=== PATIENT | female | born 1985 | race Two or more races ===

== ENCOUNTER 2024-01-08 16:30 | Emergency (ER) | payer MEDICAID ==
[~2024-01-08] VITALS: Ht 157.5 cm; Wt 99.0 kg
[~2024-01-08 16:30] MED LIST: NEOM10SO7 RIGHT EAR
[2024-01-08 17:14] LABS: BASOPHILS % (AUTO) 0.5 % (0-1); EOSINOPHILS % (AUTO) 0.5 % (0-6); HEMATOCRIT 40.3 % (35.0-45.0); HEMOGLOBIN 13.1 g/dl (12.0-16.0); LYMPHOCYTES # (AUTO) 2.4 X10'3 (1.1-4.8); LYMPHOCYTES % (AUTO) 27.2 % (21-51); MEAN CORPUSCULAR HEMOGLOBIN 27.6 PG (27.0-31.0); MEAN CORPUSCULAR HGB CONC 32.4 g/dL (33.0-36.5); MEAN CORPUSCULAR VOLUME 85.1 FL (78-98); MEAN PLATELET VOLUME 8.3 FL (7.4-10.4); MONOCYTES # (AUTO) 0.6 X10'3 (0-0.9); MONOCYTES % (AUTO) 6.5 % (2-12); NEUTROPHILS # (AUTO) 5.7 X10'3 (1.8-7.7); NEUTROPHILS % (AUTO) 65.3 % (42-75); PLATELET COUNT 366 X10'3 (140-440); RED BLOOD COUNT 4.73 X10'6 (4.20-5.60); RED CELL DISTRIBUTION WIDTH 13.8 % (11.5-14.5); WHITE BLOOD COUNT 8.7 X10'3 (4.5-11.0)
[2024-01-08 17:26] LABS: ALANINE AMINOTRANSFERASE 32 U/L (12-78); ALKALINE PHOSPHATASE 57 IU/L (46-116); AMYLASE 49 U/L (25-115); ANION GAP 8 (8-16); ASPARTATE AMINO TRANSFERASE 18 U/L (10-37); BILIRUBIN,TOTAL 0.4 MG/DL (0.1-1.0); BLOOD UREA NITROGEN 15 MG/DL (7-18); BUN/CREATININE RATIO 22.7 (10.0-20.0); CALCIUM 8.9 MG/DL (8.5-10.1); CHLORIDE 108 MMOL/L (99-107); CREATININE 0.66 MG/DL (0.40-0.90); GLUCOSE 112 MG/DL (70-104); LIPASE 41 U/L (16-77); POTASSIUM 3.9 MMOL/L (3.5-5.1); SODIUM 141 MMOL/L (135-145); TOTAL CARBON DIOXIDE 25.5 MMOL/L (24-32); TOTAL PROTEIN 8.2 G/DL (6.4-8.2); eCRCL 91 ML/MIN; eGFR > 90 ML/MIN
--- NOTE | 2024-01-08 18:18 | NUR ---
pt is out in the lobby eatting a burrito.
[2024-01-08] MEDS ORDERED: iohexol 300mg/ml 100ml inj. ONE (19:53)
[2024-01-08 20:06] LABS: BILIRUBIN,URINE NEGATIVE (Neg); CLARITY,URINE CLOUDY (Clear); COLOR,URINE YELLOW (Yellow); GLUCOSE, URINE NEGATIVE (Neg); KETONES,URINE NEGATIVE (Neg); LEUKOCYTE ESTERASE ,URINE NEGATIVE (Neg); NITRITES, URINE NEGATIVE (Neg); OCCULT BLOOD,URINE NEGATIVE (Neg); PH,URINE 5.5 (4.8-8.0); PROTEIN,URINE NEGATIVE (Neg); URINE HCG NEGATIVE (NEG); UROBILINOGEN,URINE 0.2 E.U/dL (0.2-1.0)
[2024-01-08 20:11] LABS: UA COLLECTION TYPE CLN CATCH MIDSTREAM
--- NOTE | 2024-01-08 20:15 | NUR ---
PT TO CT AT THIS TIME
[2024-01-08 20:17] LABS: BACTERIA,URINE 1+ /HPF (Neg); RBC,URINE 0-2 /HPF (0-2); SQUAMOUS EPITHELIAL CELL,UR MANY /LPF (FEW); WBC,URINE 0-4 /HPF (0-4)
[2024-01-08 20:18] LABS: HYALINE CASTS 0-3 /LPF (NEGATIVE); MUCUS STRANDS MODERATE /LPF (Neg)
[2024-01-08] MEDS: ketorolac trometh 15mg/ml vial 15 MG/ML ML IV STA (20:29)
[2024-01-08] MEDS ORDERED: IBUP-1986 PO (21:16)
[2024-01-08] MEDS ORDERED: ACET-1025 PO (21:16)
[2024-01-08 21:28] VITALS: BP 117/82; PULSE 71; RESP 16; TEMP 97.9; O2SAT 98
== END 2024-01-08 21:29 | disposition home or self-care (01) ==
LOC: ER 16:30
DX: R10.33 Periumbilical pain (principal); N83.292 Other ovarian cyst, left side; Z88.0 Allergy status to penicillin; Z79.899 Other long term (current) drug therapy; Z87.442 Personal history of urinary calculi
CPT/HCPCS: 36415; 74177; 80053; 81001; 81025; 82150; 83690; 85025; 96374; 99285; J1885; Q9967

== ENCOUNTER 2024-03-07 09:59 | Outpatient (CLI) | payer MEDICAID ==
[~2024-03-07 09:59] MED LIST changes: +IBUP-1986 PO
== END 2024-03-07 23:59 | disposition home or self-care (01) ==
LOC: RAD 09:59
PROVIDERS: ATTEND Family Medicine
DX: K42.9 Umbilical hernia without obstruction or gangrene (principal); K76.0 Fatty (change of) liver, not elsewhere classified
CPT/HCPCS: 74150